=== PATIENT | female | born 1995 | race Hispanic/Latino ===

== ENCOUNTER 2022-07-15 16:44 | Emergency (ER) | payer OTHER ==
[~2022-07-15] VITALS: Ht 162.6 cm; Wt 72.6 kg
[~2022-07-15 16:44] MED LIST: DOXYCYCLINE HY100 MG PO; OFLOXACIN5 ML OT; ONDANSETRON ODT4 MG PO
[2022-07-15] MEDS ORDERED: HYDROCODONE/APAP 5MG-325MG TAB PO PRN (17:15)
[2022-07-15] MEDS ORDERED: ONDANSETRON HCL 4 MG ORAL DISINTEGRATING TAB PO ONE (17:15)
[2022-07-15 17:29] LABS: COLOR,URINE YELLOW (YELLOW)
[2022-07-15 17:30] LABS: CLARITY,URINE CLEAR (CLEAR); KETONES,URINE NEGATIVE (NEGATIVE); LEUKOCYTE ESTERASE ,URINE NEGATIVE (NEGATIVE); NITRITE,URINE NEGATIVE (NEGATIVE); PROTEIN,URINE DIPSTICK NEGATIVE (NEGATIVE); URINE UROBILINOGEN 0.2 mg/dL (0.2 - 1)
[2022-07-15 17:37] LABS: BACTERIA,URINE RARE /HPF; EPITHELIAL CELLS,URINE FEW /LPF; WBC,URINE (MAN) 0-5 /HPF (0-5)
[2022-07-15] MEDS ORDERED: KETOROLAC TROMETHAMINE 60 MG/2 ML VIAL IM ONE (19:15)
[2022-07-15] MEDS ORDERED: ONDANSETRON ODT4 MG PO (19:38)
[2022-07-15] MEDS ORDERED: ANAPROX DS550 MG PO (19:38)
[2022-07-15 19:44] VITALS: BP 128/67; PULSE 83; RESP 17; O2SAT 99
== END 2022-07-15 19:47 | disposition home or self-care (01) ==
LOC: ER 16:49
DX: R10.2 Pelvic and perineal pain (principal); N83.202 Unspecified ovarian cyst, left side
CPT/HCPCS: 76830; 76856; 81001; 81025; 99283; J1885; Q0162